=== PATIENT | male | born 1990 | race Two or more races ===

== ENCOUNTER 2020-08-23 16:11 | Emergency (ER) | payer OTHER, BC ==
--- NOTE | 2020-08-23 16:51 | ER Document Report ---
ED Wound - General Chief Complaint: Laceration Stated Complaint: LACERATION Time Seen by Provider: 08/23/20 16:40 Primary Care Provider: PAUL HOLLIDAY MD [ACTIVE STAFF] - Follow up as needed - HPI Notes: Patient is a 29 y/o male with no medical hx who presents with a laceration to his right thumb. Patient states he was using a table saw when he cut his finger. He states he initially rinsed his finger with sprite since he had no water to rinse it out. He states his last tetanus shot was one year ago. Patient denies any other injuries or complaints. He has not taken any medication for pain rel ief. Past Medical History - General Information source: Patient - Social History Smoking Status: Unknown if Ever Smoked Family History: Reviewed & Not Pertinent Review of Systems - Review of Systems Constitutional: No symptoms reported EENT: No symptoms reported Cardiovascular: No symptoms reported Respiratory: No symptoms reported Gastrointestinal: No symptoms reported Genitourinary: No symptoms reported Male Genitourinary: No symptoms reported Musculoskeletal: See HPI Skin: No symptoms reported Hematologic/Lymphatic: No symptoms reported Neurological/Psychological: No symptoms reported Physical Exam - Vital signs Vitals: Temp Pulse Resp BP Pulse Ox 98.8 F 72 16 122/83 100 08/23/20 16:15 08/23/20 16:15 08/23/20 16:15 08/23/20 16:15 08/23/20 16:15 - Notes Notes: PHYSICAL EXAMINATION: GENERAL: Well-appearing, well-nourished and in no acute distress. HEAD: Atraumatic, normocephalic. EYES: sclera anicteric, conjunctiva are normal. ENT: Moist mucous membranes. NECK: Normal range of motion LUNGS: Normal work of breathing HEART: 2+ radial pulses bilaterally EXTREMITIES: Laceration to the tip of the right thumb with minimal nail involvement. Bleeding is well controlled. Full range of motion of the right thumb. Sensation grossly intact. No pitting or edema. No cyanosis. NEUROLOGICAL: No focal neurological deficits. Moves all extremities spontaneously and on command. PSYCH: Normal mood, normal affect. SKIN: Warm, Dry, normal turgor, no rashes or lesions noted. Course - Re-evaluation Re-evalutation: Patient is a 29-year-old male who presents with a laceration to his right thumb. Vital signs are stable and within normal limits. On exam, laceration to the tip of the right thumb with minimal nail involvement. Right hand XR shows nondisplaced distal tuft fracture, thumb. Soft tissue swelling and injury at the distal thumb, site of injury. Very small density in the soft tissues may represent very small bone fragment versus foreign body. Laceration repair was performed using a digital block of the right thumb. Attempted to find foreign body visualized on XR for removal but was unsuccessful. Patient tolerated the procedure well and there were no complications. Patient prescribed Keflex 4 times daily for 7 days. Patient's finger was dressed and splinted. Patient structured to follow-up with orthopedics promptly. Return precautions given. Patient will be discharged home. Patient understands and is in agreement with the plan. - Vital Signs Vital signs: Temp Pulse Resp BP Pulse Ox 98.4 F 75 18 127/76 H 75 L 08/23/20 23:04 08/23/20 23:04 08/23/20 23:04 08/23/20 23:04 08/23/20 23:04 - Laboratory Results Critical Laboratory Results Reviewed: No Critical Results - Radiology Results Radiology Results Interpreted: Hand X-Ray 08/23/20 16:45 IMPRESSION: 1. Nondisplaced distal tuft fracture, thumb. 2. Soft tissue swelling and injury at the distal thumb, site of injury. Very small density in the soft tissues may represent very small bone fragment versus foreign body. Critical Radiology Results Reviewed: No Critical Results Procedures - Immobilization Right Distal Finger Thumb Pre-Proc Neuro Vasc Exam: Normal Immobilizer type: Finger protection Performed by: RN Post-Proc Neuro Vasc Exam: Normal - Laceration/Wound Repair Right Distal Finger Thumb Wound length (cm): 10 Wound's Depth, Shape: Irregular Laceration pre-procedure: Sterile drapes applied, Shur-Clens applied Anesthetic type: 1% Lidocaine Wound explored: No foreign body removed Irrigated w/ Saline (mLs): 60 Wound Repaired With: Sutures Suture Size/Type: 5:0, 4:0, Ethilon Number of Sutures: 20 Layer Closure?: No Notes: The wound is 10 cm in length to the distal right thumb with minimal nail involvement. The wound was copiously irrigated with normal saline and surgical cleanser. The wound was explored for foreign bodies and none were found. The wound was prepped and draped in the normal sterile fashion. The wound was anesthetized using 1% lidocaine using a digital block. The edges were reapproximated using 4-0 and 5-0 Ethilon. Bleeding was well controlled and the patient tolerated the procedure well. Discharge - Discharge Clinical Impression: Closed fracture of tuft of distal phalanx of right thumb Laceration of right thumb Qualifiers: Encounter type: initial encounter Damage to nail status: with damage Foreign body presence: with foreign body Qualified Code(s): S61.121A - Laceration with foreign body of right thumb with damage to nail, initial encounter Condition: Stable Disposition: HOME, SELF-CARE Instructions: Fractured Finger ([facility]), Laceration Care ([facility]), Prophylactic Antibiotic ([facility]) Additional Instructions: Follow up with your primary care provider or return to the emergency department in 7-10 days for suture removal. Prescriptions: Cephalexin Monohydrate [Keflex 500 mg Capsule] 500 mg PO QID 7 Days #28 capsule Referrals: PAUL HOLLIDAY MD [ACTIVE STAFF] - Follow up as needed
--- NOTE | 2020-08-23 17:09 | RADIOLOGY REPORT (SQ) ---
EXAM DESCRIPTION: HAND RIGHT 3 VIEWS IMAGES COMPLETED DATE/TIME: 08/23/2020 4:59 pm REASON FOR STUDY: right thumb laceration COMPARISON: None. EXAM PARAMETERS: NUMBER OF VIEWS: Three views. TECHNIQUE: AP, lateral and oblique radiographic images acquired of the right hand. LIMITATIONS: None. FINDINGS: MINERALIZATION: Normal. BONES: Nondisplaced distal tuft fracture, thumb. JOINTS: No effusions. SOFT TISSUES: A very small 1-2 mm density in the soft tissues of the distal thumb, site of injury. Soft tissue swelling. Considerations for this finding includes very small bone fragment versus forei gn body. OTHER: No other significant finding. IMPRESSION: 1. Nondisplaced distal tuft fracture, thumb. 2. Soft tissue swelling and injury at the distal thumb, site of injury. Very small density in the s oft tissues may represent very small bone fragment versus foreign body. TECHNICAL DOCUMENTATION: JOB ID: [id number] 2010 [employer]- All Rights Reserved Reading location - IP/workstation name: [email or web address]
[2020-08-23] MEDS ORDERED: LIDOCAINE 1% INJ-PF (10 MG/ML) 30 ML SDV INJ ONE (19:17)
[2020-08-23 23:06] VITALS: BP 127/76
== END 2020-08-23 23:00 | disposition home or self-care (01) ==
LOC: ER 16:11
DX: S62.521A Displaced fracture of distal phalanx of right thumb, initial encounter for closed fracture (principal); S61.121A Laceration with foreign body of right thumb with damage to nail, initial encounter; W29.8XXA Contact with other powered hand tools and household machinery, initial encounter
CPT/HCPCS: 99283; 73130; 12004; J3490